=== PATIENT | female | born 1970 | race Caucasian/White ===

== ENCOUNTER 2021-12-28 11:09 | Emergency (ER) | payer SELFPAY ==
[~2021-12-28] VITALS: Ht 157.5 cm; Wt 97.3 kg
[2021-12-28] MEDS ORDERED: ENAL10TA18 PO (11:44)
[2021-12-28] MEDS ORDERED: KETOROLAC TROMETHAMINE 60 MG/2 ML VIAL IM ONE (12:15)
[2021-12-28 14:28] VITALS: BP 131/75
== END 2021-12-28 15:04 | disposition home or self-care (01) ==
LOC: EMS 11:12
DX: M54.2 Cervicalgia (principal); M54.6 Pain in thoracic spine; M54.50 Low back pain, unspecified; I10 Essential (primary) hypertension; Z79.899 Other long term (current) drug therapy; V49.49XA Driver injured in collision with other motor vehicles in traffic accident, initial encounter; Y93.89 Activity, other specified; Y92.89 Other specified places as the place of occurrence of the external cause; Y99.8 Other external cause status
CPT/HCPCS: 71047; 72040; 72100; 96372; 99284; J1885